=== PATIENT | female | born 1985 | race American Indian/Alaskan Native ===

== ENCOUNTER 2020-04-27 21:37 | Emergency (ER) | payer MEDICAID, OTHER ==
[2020-04-28 01:33] LABS: Bilirubin,Urine NEG (Negative); Blood,Urine NEG (Negative); Color,Urine Straw (Yellow); Mucus,Urine FEW /HPF; Protein,Urine <15 mg/dL mg/dL (Negative); Urobilinogen,Urine < 2.0 mg/dL (<2.0)
[2020-04-28 01:55] LABS: HCG Qualitative,Urine Negative (Negative)
[2020-04-28] MEDS ORDERED: predniSONE 50 MG TAB PO ONE (03:48)
[2020-04-28] MEDS ORDERED: ONDANSETRON 4 MG ODT TAB PO ONE (03:48)
[2020-04-28] MEDS ORDERED: ACETAMINOPHEN 500 MG TAB PO ONE (03:48)
[2020-04-28] MEDS ORDERED: IBUPROFEN 600 MG TAB PO ONE (03:48)
--- NOTE | 2020-04-28 04:06 | Emergency Department Report ---
ED Back Pain/Injury HPI - General Chief Complaint: Abdominal Pain Stated Complaint: RT HIP PAIN Source: patient Limitations: No Limitations - History of Present Illness Initial Comments: Patient is a 35-year-old -[place] female with a history of hypertension, tmv-[id number]-yerhpuzjr diabetes and asthma who presents to the ED with complaint of acute onset persistent nontraumatic low back pain that radiates to the right leg for the last 1 week, worse in the last 2 days. Patient states that she is on her feet most of the time at work and that the pain gets worse after work. Patient states that the pain radiates to the right hip and right groin. Patient denies fall, traumatic injury, numbness and tingling or weakness of lower extremities bilaterally, change in vision, urinary or bowel incontinence, vaginal bleeding, vaginal discharge, abdominal pain, chest pain or shortness of breath, fever and chills. MD Complaint: back pain (lower), other (back pain that radiates to the right hip and leg) -: Sudden, week(s) (1) Similar Symptoms Previously: Yes Place: home Radiation: groin (right), right leg Severity scale (0 -10): 8 Quality: sharp, aching Consistency: constant Improves With: none Worsens With: movement, walking Context: unknown, other (spontaneous) Associated Symptoms: denies other symptoms. denies: confusion, weakness, chest pain, numbness, difficulty walking, cough, difficulty urinating, diaphoresis, incontinence, constipation, headaches, abdominal pain, loss of appetite, malaise, rash, seizure, shortness of breath, syncope, other - Related Data Previous Rx's Medication Instructions Recorded Last Taken Type Dicyclomine [Bentyl] 10 mg PO TID #20 capsule 10/04/18 Unknown Rx Ondansetron [Zofran ODT TAB] 8 mg PO Q8HR #30 tab.rapdis 10/04/18 Unknown Rx Gabapentin 300 mg PO Q12H PRN #24 cap 04/28/20 Unknown Rx Naproxen 500 mg PO Q12H PRN #30 tablet 04/28/20 Unknown Rx methOCARBAMOL [Robaxin TAB] 750 mg PO Q8H PRN #30 tablet 04/28/20 Unknown Rx predniSONE [Deltasone] 40 mg PO QDAY #10 tab 04/28/20 Unknown Rx traMADoL [Ultram 50 MG tab] 50 mg PO Q6HR PRN #12 tablet 04/28/20 Unknown Rx Allergies Allergy/AdvReac Type Severity Reaction Status Date / Time No Known Allergies Allergy Unverified 10/04/18 06:41 ED Review of Systems ROS: Stated complaint: RT HIP PAIN Other details as noted in HPI Constitutional: denies: chills, fever Eyes: denies: eye pain, eye discharge, vision change ENT: denies: ear pain, throat pain Respiratory: denies: cough, shortness of breath, wheezing Cardiovascular: denies: chest pain, palpitations Endocrine: no symptoms reported Gastrointestinal: denies: abdominal pain, nausea, diarrhea Genitourinary: denies: urgency, dysuria, discharge Musculoskeletal: back pain (Low back pain that radiates to the right leg and right hip), arthralgia (Right hip pain that radiates to the right leg). denies: joint swelling Skin: denies: rash, lesions Neurological: denies: headache, weakness, paresthesias Psychiatric: denies: anxiety, depression Hematological/Lymphatic: denies: easy bleeding, easy bruising ED Past Medical Hx - Past Medical History Previous Medical History?: Yes Hx Hypertension: Yes Hx Diabetes: Yes Hx Asthma: Yes - Surgical History Past Surgical History?: Yes Additional Surgical History: C-Sec X 2 - Social History Smoking Status: Never Smoker Substance Use Type: None - Medications Home Medications: Home Medications Medication Instructions Recorded Confirmed Last Taken Type Dicyclomine [Bentyl] 10 mg PO TID #20 capsule 10/04/18 Unknown Rx Ondansetron [Zofran ODT TAB] 8 mg PO Q8HR #30 tab.rapdis 10/04/18 Unknown Rx Gabapentin 300 mg PO Q12H PRN #24 cap 04/28/20 Unknown Rx Naproxen 500 mg PO Q12H PRN #30 tablet 04/28/20 Unknown Rx methOCARBAMOL [Robaxin TAB] 750 mg PO Q8H PRN #30 tablet 04/28/20 Unknown Rx predniSONE [Deltasone] 40 mg PO QDAY #10 tab 04/28/20 Unknown Rx traMADoL [Ultram 50 MG tab] 50 mg PO Q6HR PRN #12 tablet 04/28/20 Unknown Rx ED Physical Exam - General Limitations: No Limitations General appearance: alert, in no apparent distress - Head Head exam: Present: atraumatic, normocephalic, normal inspection - Eye Eye exam: Present: normal appearance, PERRL, EOMI Pupils: Present: normal accommodation - ENT ENT exam: Present: normal exam, normal orophraynx, mucous membranes moist, TM's normal bilaterally, normal external ear exam - Neck Neck exam: Present: normal inspection, full ROM. Absent: tenderness - Respiratory Respiratory exam: Present: normal lung sounds bilaterally. Absent: respiratory distress, wheezes, rales, rhonchi, stridor, chest wall tenderness, accessory muscle use, decreased breath sounds, prolonged expiratory - Cardiovascular Cardiovascular Exam: Present: regular rate, normal rhythm, normal heart sounds. Absent: systolic murmur, diastolic murmur, rubs, gallop - GI/Abdominal GI/Abdominal exam: Present: soft, normal bowel sounds. Absent: distended, tenderness, guarding, rebound, hyperactive bowel sounds - Extremities Exam Extremities exam: Present: normal inspection, full ROM, tenderness (Palpable right hip tenderness), normal capillary refill. Absent: pedal edema, joint swelling, calf tenderness - Back Exam Back exam: Present: normal inspection, full ROM, tenderness (Palpable lumbos acral paraspinal musculoskeletal tenderness), muscle spasm, paraspinal tenderness. Absent: CVA tenderness (R), CVA tenderness (L), vertebral tenderness - Neurological Exam Neurological exam: Present: alert, oriented X3, CN II-XII intact, normal gait, reflexes normal - Psychiatric Psychiatric exam: Present: normal affect, normal mood - Skin Skin exam: Present: warm, dry, intact, normal color. Absent: rash ED Course Vital Signs 04/28/20 01:11 Temperature 97.9 F Pulse Rate 82 Respiratory 18 Rate Blood Pressure 160/110 [Left] O2 Sat by Pulse 99 Oximetry ED Medical Decision Making - Medical Decision Making This is a 35-year-old -[place] female with a history of hypertension, qfl-rvvucxe-mkluoqble diabetes and asthma who presents to the ED with complaint of acute onset persistent nontraumatic low back pain that radiates to the right leg for the last 1 week, worse in the last 2 days. Patient states that she is on her feet most of the time at work and that the pain gets worse after work. Patient states that the pain radiates to the right hip and right groin. In the ED, patient is alert and oriented x3 and is not in distress. Urinalysis is unremarkable. Patient was treated for pain in the ED on reevaluation, patient's pain is well controlled medications. Patient is ambulatory in the ED with no difficulties. Patient was discharged home on pain medications and muscle relaxants and was advised to follow-up with her primary care physician in 5 to 7 days for reevaluation or return to the ED immediately if symptoms get worse. - Differential Diagnosis Back muscle spasm; Muscle strain; sciatica; Bursitis; Osteoarthritis Critical care attestation.: If time is entered above; I have spent that time in minutes in the direct care of this critically ill patient, excluding procedure time. ED Disposition Clinical Impression: Spasm of muscle of lower back Acute low back pain with right-sided sciatica Qualifiers: Back pain laterality: right Qualified Code(s): M54.41 - Lumbago with sciatica, right side Bursitis of right hip Qualifiers: Hip bursitis location: unspecified Qualified Code(s): M70.71 - Other bursitis of hip, right hip Disposition: TO HOME OR SELFCARE Is pt being admited?: No Does the pt Need Aspirin: No Condition: Stable Instructions: Abdominal Pain (ED), Muscle Cramps and Spasms, Tfjv-[id number], Hip Bursitis, Ecbf-ax-Ygth, Sciatica, [id number] Additional Instructions: Take medication with food, drink plenty of fluids and follow-up with your primary care physician in 5 to 7 days for reevaluation. Return to the ED immediately if symptoms get worse. Prescriptions: predniSONE [Deltasone] 40 mg PO QDAY #10 tab Gabapentin 300 mg PO Q12H PRN #24 cap PRN Reason: Neuropathy Naproxen 500 mg PO Q12H PRN #30 tablet PRN Reason: Pain , Severe (7-10) methOCARBAMOL [Robaxin TAB] 750 mg PO Q8H PRN #30 tablet PRN Reason: Muscle Spasm traMADoL [Ultram 50 MG tab] 50 mg PO Q6HR PRN #12 tablet PRN Reason: Pain Referrals: [facility] [Provider Group] - 3-5 Days Forms: Work/School Release Form(ED) Time of Disposition: 04:05 Print Language: CUBAN
[2020-04-28 04:40] VITALS: BP 140/92
== END 2020-04-28 04:00 | disposition home or self-care (01) ==
LOC: ED 21:37
DX: M54.41 Lumbago with sciatica, right side (principal); M70.71 Other bursitis of hip, right hip; M62.830 Muscle spasm of back; I10 Essential (primary) hypertension; E11.9 Type 2 diabetes mellitus without complications; J45.909 Unspecified asthma, uncomplicated; Z98.890 Other specified postprocedural states; Z79.899 Other long term (current) drug therapy; Y93.89 Activity, other specified
CPT/HCPCS: 81001; 81025; 99283; J7512; Q0162

== ENCOUNTER 2020-09-16 00:07 | Emergency (ER) | payer MEDICAID ==
[2020-09-16 03:43] LABS: Alanine Aminotransferase 19 units/L (7-56); Albumin 4.3 g/dL (3.9-5); Blood Urea Nitrogen 9 mg/dL (7-17); Calcium 8.7 mg/dL (8.4-10.2); Hemolysis Index 5
[2020-09-16 03:44] LABS: BUN/Creatinine Ratio 13
[2020-09-16 03:51] LABS: Basophils # (Auto) 0.1 K/mm3 (0.0-0.1); Basophils % (Auto) 1.2 % (0.0-1.8); Eosinophils # (Auto) 0.1 K/mm3 (0.0-0.4); Eosinophils % (Auto) 0.7 % (0.0-4.3); Hematocrit 41.6 % (30.3-42.9); Hemoglobin 13.6 gm/dl (10.1-14.3); Lymphocytes # (Auto) 2.6 K/mm3 (1.2-5.4); Lymphocytes % (Auto) 32.2 % (13.4-35.0); Mean Corpuscular HGB Conc 33 % (30-34); Mean Corpuscular Volume 87 fl (79-97); Monocytes # (Auto) 0.5 K/mm3 (0.0-0.8); Monocytes % (Auto) 6.2 % (0.0-7.3); Platelet Count 245 K/mm3 (140-440); Red Cell Distribution Width 13.6 % (13.2-15.2)
[2020-09-16 03:56] LABS: Bilirubin,Urine NEG (Negative); Blood,Urine NEG (Negative); Color,Urine Straw (Yellow); Mucus,Urine FEW /HPF; Protein,Urine <15 mg/dL mg/dL (Negative); Urobilinogen,Urine < 2.0 mg/dL (<2.0); WBC,Urine < 1.0 /HPF (0.0-6.0)
[2020-09-16] MEDS ORDERED: SODIUM CHLORIDE 0.9% 1000 ML 1,000 ML IV ONE (04:23)
[2020-09-16] MEDS ORDERED: MORPHINE 4 MG/1 ML INJ IV ONE (04:23)
[2020-09-16] MEDS ORDERED: POTASSIUM CHLORIDE ER 20 MEQ TAB PO ONE (04:23)
[2020-09-16] MEDS ORDERED: ONDANSETRON 4 MG/2 ML INJ IV ONE (04:23)
--- NOTE | 2020-09-16 05:01 | Emergency Department Report ---
ED Abdominal Pain HPI - General Chief Complaint: Abdominal Pain Stated Complaint: LOWER ABDOMINAL PAIN Time Seen by Provider: 09/16/20 03:53 Source: patient Mode of arrival: Ambulatory Limitations: No Limitations - History of Present Illness Initial Comments: Patient is a 35-year-old female presents emergency room with complaints of left lower quadrant abdominal pain that began yesterday. She states that it feels like a knot. She states she has intermittent sharp stabbing pain. She denies ever having this in the past. She has associated nausea. She states that she was feeling constipated and used a laxative and was able to have a bowel moveme nt without difficulty. She denies any vomiting, diarrhea, hematochezia, melena, hematemesis, dysuria, urinary symptoms, abnormal vaginal discharge, pelvic pain. Past medical history of asthma, hypertension, diabetes. She states that she did not take her dose of nicardipine 90 mg. She has a past abdominal surgical history of x2. She states that she has a IUD as control. Patient denies any medication allergies. Severity scale (0 -10): 10 - Related Data Previous Rx's Medication Instructions Recorded Last Taken Type Dicyclomine [Bentyl] 10 mg PO TID #20 capsule 10/04/18 Unknown Rx Ondansetron [Zofran ODT TAB] 8 mg PO Q8HR #30 tab.rapdis 10/04/18 Unknown Rx Gabapentin 300 mg PO Q12H PRN #24 cap 04/28/20 Unknown Rx Naproxen 500 mg PO Q12H PRN #30 tablet 04/28/20 Unknown Rx methOCARBAMOL [Robaxin TAB] 750 mg PO Q8H PRN #30 tablet 04/28/20 Unknown Rx predniSONE [Deltasone] 40 mg PO QDAY #10 tab 04/28/20 Unknown Rx traMADoL [Ultram 50 MG tab] 50 mg PO Q6HR PRN #12 tablet 04/28/20 Unknown Rx Ciprofloxacin HCl [Ciprofloxacin 500 mg PO BID 10 Days #40 tablet 09/16/20 Unknown Rx TAB] Promethazine [Phenergan] 25 mg PO Q8HR PRN #12 tab 09/16/20 Unknown Rx metroNIDAZOLE [Flagyl] 500 mg PO BID 10 Days #20 tab 09/16/20 Unknown Rx traMADoL [Ultram 50 MG tab] 50 mg PO Q6HR PRN #12 tablet 09/16/20 Unknown Rx Allergies Allergy/AdvReac Type Severity Reaction Status Date / Time No Known Allergies Allergy Unverified 10/04/18 06:41 ED Review of Systems ROS: Stated complaint: LOWER ABDOMINAL PAIN Other details as noted in HPI Comment: All other systems reviewed and negative ED Past Medical Hx - Past Medical History Previous Medical History?: Yes Hx Hypertension: Yes Hx Diabetes: Yes Hx Asthma: Yes - Surgical History Past Surgical History?: Yes Additional Surgical History: C-Sec X 2 - Social History Smoking Status: Never Smoker Substance Use Type: None - Medications Home Medications: Home Medications Medication Instructions Recorded Confirmed Last Taken Type Dicyclomine [Bentyl] 10 mg PO TID #20 capsule 10/04/18 Unknown Rx Ondansetron [Zofran ODT TAB] 8 mg PO Q8HR #30 tab.rapdis 10/04/18 Unknown Rx Gabapentin 300 mg PO Q12H PRN #24 cap 04/28/20 Unknown Rx Naproxen 500 mg PO Q12H PRN #30 tablet 04/28/20 Unknown Rx methOCARBAMOL [Robaxin TAB] 750 mg PO Q8H PRN #30 tablet 04/28/20 Unknown Rx predniSONE [Deltasone] 40 mg PO QDAY #10 tab 04/28/20 Unknown Rx traMADoL [Ultram 50 MG tab] 50 mg PO Q6HR PRN #12 tablet 04/28/20 Unknown Rx Ciprofloxacin HCl [Ciprofloxacin 500 mg PO BID 10 Days #40 tablet 09/16/20 Unknown Rx TAB] Promethazine [Phenergan] 25 mg PO Q8HR PRN #12 tab 09/16/20 Unknown Rx metroNIDAZOLE [Flagyl] 500 mg PO BID 10 Days #20 tab 09/16/20 Unknown Rx traMADoL [Ultram 50 MG tab] 50 mg PO Q6HR PRN #12 tablet 09/16/20 Unknown Rx ED Physical Exam - General Limitations: No Limitations General appearance: alert, in no apparent distress - Head Head exam: Present: atraumatic, normocephalic - Eye Eye exam: Present: normal appearance - ENT ENT exam: Present: mucous membranes moist - Respiratory Respiratory exam: Present: normal lung sounds bilaterally. Absent: respiratory distress, wheezes, rales, rhonchi, stridor, chest wall tenderness, accessory muscle use, decreased breath sounds, prolonged expiratory - Cardiovascular Cardiovascular Exam: Present: regular rate, normal rhythm, normal heart sounds. Absent: systolic murmur, diastolic murmur, rubs, gallop - GI/Abdominal GI/Abdominal exam: Present: soft, tenderness (LLQ abd ttp), guarding (voluntary), normal bowel sounds. Absent: distended, rebound, rigid - Back Exam Back exam: Absent: CVA tenderness (R), CVA tenderness (L) - Neurological Exam Neurological exam: Present: alert, oriented X3 - Psychiatric Psychiatric exam: Present: normal affect, normal mood - Skin Skin exam: Present: warm, dry, intact ED Course Vital Signs 09/16/20 09/16/20 09/16/20 02:38 04:54 05:24 Temperature 98.2 F Pulse Rate 87 Respiratory 20 16 16 Rate Blood Pressure 177/107 O2 Sat by Pulse 100 Oximetry ED Medical Decision Making - Lab Data Result diagrams: 09/16/20 02:56 09/16/20 02:56 Lab Results 09/16/20 09/16/20 09/16/20 Range/Units 02:56 02:56 02:56 WBC 8.1 (4.5-11.0) K/mm3 RBC 4.80 (3.65-5.03) M/mm3 Hgb 13.6 (10.1-14.3) gm/dl Hct 41.6 (30.3-42.9) % MCV 87 (79-97) fl MCH 28 (28-32) pg MCHC 33 (30-34) % RDW 13.6 (13.2-15.2) % Plt Count 245 (140-440) K/mm3 Lymph % (Auto) 32.2 (13.4-35.0) % [place] % (Auto) 6.2 (0.0-7.3) % Eos % (Auto) 0.7 (0.0-4.3) % Baso % (Auto) 1.2 (0.0-1.8) % Lymph # (Auto) 2.6 (1.2-5.4) K/mm3 [place] # (Auto) 0.5 (0.0-0.8) K/mm3 Eos # (Auto) 0.1 (0.0-0.4) K/mm3 Baso # (Auto) 0.1 (0.0-0.1) K/mm3 Seg Neutrophils % 59.7 (40.0-70.0) % Seg Neutrophils # 4.8 (1.8-7.7) K/mm3 Sodium 138 (137-145) mmol/L Potassium 3.2 L (3.6-5.0) mmol/L Chloride 102.4 (98-107) mmol/L Carbon Dioxide 26 (22-30) mmol/L Anion Gap 13 mmol/L BUN 9 (7-17) mg/dL Creatinine 0.7 (0.6-1.2) mg/dL Estimated GFR > 60 ml/min BUN/Creatinine Ratio 13 % Glucose 136 H (65-100) mg/dL Calcium 8.7 (8.4-10.2) mg/dL Total Bilirubin 0.40 (0.1-1.2) mg/dL AST 15 (5-40) units/L ALT 19 (7-56) units/L Alkaline Phosphatase 77 (35-129) units/L Total Protein 7.0 (6.3-8.2) g/dL Albumin 4.3 (3.9-5) g/dL Albumin/Globulin Ratio 1.6 % Lipase (13-60) units/L HCG, Qual Negative (Negative) Urine Color (Yellow) Urine Turbidity (Clear) Urine pH (5.0-7.0) Ur Specific [place] (1.003-1.030) Urine Protein (Negative) mg/dL Urine Glucose (UA) (Negative) mg/dL Urine Ketones (Negative) mg/dL Urine Blood (Negative) Urine Nitrite (Negative) Urine Bilirubin (Negative) Urine Urobilinogen (<2.0) mg/dL Ur Leukocyte Esterase (Negative) Urine WBC (Auto) (0.0-6.0) /HPF Urine RBC (Auto) (0.0-6.0) /HPF U Epithel Cells (Auto) (0-13.0) /HPF Urine Mucus /HPF 09/16/20 09/16/20 Range/Units 03:04 04:00 WBC (4.5-11.0) K/mm3 RBC (3.65-5.03) M/mm3 Hgb (10.1-14.3) gm/dl Hct (30.3-42.9) % MCV (79-97) fl MCH (28-32) pg MCHC (30-34) % RDW (13.2-15.2) % Plt Count (140-440) K/mm3 Lymph % (Auto) (13.4-35.0) % [place] % (Auto) (0.0-7.3) % Eos % (Auto) (0.0-4.3) % Baso % (Auto) (0.0-1.8) % Lymph # (Auto) (1.2-5.4) K/mm3 [place] # (Auto) (0.0-0.8) K/mm3 Eos # (Auto) (0.0-0.4) K/mm3 Baso # (Auto) (0.0-0.1) K/mm3 Seg Neutrophils % (40.0-70.0) % Seg Neutrophils # (1.8-7.7) K/mm3 Sodium (137-145) mmol/L Potassium (3.6-5.0) mmol/L Chloride (98-107) mmol/L Carbon Dioxide (22-30) mmol/L Anion Gap mmol/L BUN (7-17) mg/dL Creatinine (0.6-1.2) mg/dL Estimated GFR ml/min BUN/Creatinine Ratio % Glucose (65-100) mg/dL Calcium (8.4-10.2) mg/dL Total Bilirubin (0.1-1.2) mg/dL AST (5-40) units/L ALT (7-56) units/L Alkaline Phosphatase (35-129) units/L Total Protein (6.3-8.2) g/dL Albumin (3.9-5) g/dL Albumin/Globulin Ratio % Lipase 19 (13-60) units/L HCG, Qual (Negative) Urine Color Straw (Yellow) Urine Turbidity Clear (Clear) Urine pH 6.0 (5.0-7.0) Ur Specific [place] 1.020 (1.003-1.030) Urine Protein <15 mg/dl (Negative) mg/dL Urine Glucose (UA) >=500 (Negative) mg/dL Urine Ketones Neg (Negative) mg/dL Urine Blood Neg (Negative) Urine Nitrite Neg (Negative) Urine Bilirubin Neg (Negative) Urine Urobilinogen < 2.0 (<2.0) mg/dL Ur Leukocyte Esterase Neg (Negative) Urine WBC (Auto) < 1.0 (0.0-6.0) /HPF Urine RBC (Auto) 2.0 (0.0-6.0) /HPF U Epithel Cells (Auto) 1.0 (0-13.0) /HPF Urine Mucus Few /HPF - Radiology Data Radiology results: report reviewed Ordering Physician: EVANGELITS CISNEROS Date of Service: 09/16/20 Procedure(s): CT abdomen pelvis w con Accession Number(s): [id number] cc: EVANGELIST CISNEROS CT ABDOMEN AND PELVIS WITH CONTRAST INDICATION / CLINICAL INFORMATION: LLQ abd pain, nausea. TECHNIQUE: Axial CT images were obtained through the abdomen and pelvis after 100 mL Omnipaque [address] scans at this location are performed using CT dose reduction for ALARA by means of automated exposure control. COMPARISON: None available. FINDINGS: LOWER CHEST: No significant abnormality. LIVER: Hepatic steatosis. BILIARY SYSTEM: No significant abnormality. PANCREAS: No significant abnormality. SPLEEN: No significant abnormality. ADRENALS: No significant abnormality. KIDNEYS and URETERS: No significant abnormality. STOMACH / BOWEL: Sigmoid colonic diverticulosis with associated pericolonic stranding, compatible with acute diverticulitis. No extraluminal air or fluid collection identified. PERITONEUM: No free fluid. No free air. No fluid collection. LYMPH NODES: No significant adenopathy. VASCULAR STRUCTURES: No significant abnormality. URINARY BLADDER: No significant abnormality. REPRODUCTIVE ORGANS: No significant abnormality. IUD in place. ADDITIONAL FINDINGS: None. SKELETAL SYSTEM: No significant abnormality. IMPRESSION: 1. Sigmoid colonic diverticulitis. No extraluminal air or fluid collection. 2. Hepatic steatosis. Signer Name: Nicky Wheeler MD Signed: 09/16/2020 6:02 AM Workstation Name: [id number] Transcribed By: [facility] Dictated By: Nicky Wheeler MD Electronically Authenticated By: Nicky Wheeler MD Signed Date/Time: 09/16/20601 DD/ TD/TT: - Medical Decision Making Patient is a 35-year-old female presents emergency room with complaints of left lower quadrant abdominal pain that began yesterday. She states that it feels like a knot. She states she has intermittent sharp stabbing pain. She denies ever having this in the past. She has associated nausea. She states that she was feeling constipated and used a laxative and was able to have a bowel movement without difficulty. She denies any vomiting, diarrhea, hematochezia, melena, hematemesis, dysuria, urinary symptoms, abnormal vaginal discharge, pelvic pain. Past medical history of asthma, hypertension, diabetes. She states that she did not take her dose of nicardipine 90 mg. She has a past abdominal surgical history of x2. She states that she has a IUD as control. Patient denies any medication allergies. Vitals with elevated blood pressure, otherwise stable, patient states that she did not take her medication yesterday, patient given her home medication, she does not have any symptoms related to her blood pressure, she states that she does have her blood pressure medication at home. On exam patient has left lower quadrant tenderness palpation with voluntary guarding, no rebound tenderness, no rigidity, normal bowel sounds, no peritoneal signs. Labs with mild hypokalemia, repleted with K- Dur, otherwise stable. CT abdomen pelvis with IV contrast: 1. Sigmoid colonic diverticulitis. No extraluminal air or fluid collection. 2. Hepatic steatosis. Patient has no peritoneal signs, no abscess or perforation on CT, she has no leukocytosis, no fever, no tachycardia, patient is appropriate for outpatient trial of antibiotics for diverticulitis. Discussed case with Dr. Smart, ER attending who is in agreement with plan. Patient given IV Levaquin and Flagyl while in the emergency department. Patient given pain medications and symptoms improved and she was feeling much better and ready to go home. She was able to tolerate p.o. intake without difficulty. Patient given prescription for Cipro, Flagyl, Phenergan, tramadol. Discussed the importance of follow-up with patient. Discussed very strict return precautions. Advised patient Please take medication as prescribed. Do not drive or operate machinery while taking pain medication. Increase your water intake. Eat a bland liquid diet and slowly advance her diet as tolerated. Please follow the diet for diverticulitis. Follow-up with your primary care doctor for reexamination. Follow-up with a GI doctor. Return to emergency room immediately for any new or worsening symptoms including but not limited to worsening abdominal pain, constant vomiting, unable to tolerate by mouth intake, fever, blood or pus in the stool, etc. Critical care attestation.: If time is entered above; I have spent that time in minutes in the direct care of this critically ill patient, excluding procedure time. ED Disposition Clinical Impression: Acute diverticulitis Abdominal pain Qualifiers: Abdominal location: left lower quadrant Qualified Code(s): R10.32 - Left lower quadrant pain Disposition: - TO HOME OR SELFCARE Is pt being admited?: No Does the pt Need Aspirin: No Condition: Stable Instructions: Diverticulitis, Abdominal Pain (ED) Additional Instructions: Please take medication as prescribed. Do not drive or operate machinery while taking pain medication. Increase your water intake. Eat a bland liquid diet and slowly advance her diet as tolerated. Please follow the diet for diverticulitis. Follow-up with your primary care doctor for reexamination. Follow-up with a GI doctor. Return to emergency room immediately for any new or worsening symptoms including but not limited to worsening abdominal pain, constant vomiting, unable to tolerate by mouth intake, fever, blood or pus in the stool, etc. Prescriptions: Ciprofloxacin HCl [Ciprofloxacin TAB] 500 mg PO BID 10 Days #40 tablet metroNIDAZOLE [Flagyl] 500 mg PO BID 10 Days #20 tab Promethazine [Phenergan] 25 mg PO Q8HR PRN #12 tab PRN Reason: Nausea traMADoL [Ultram 50 MG tab] 50 mg PO Q6HR PRN #12 tablet PRN Reason: Pain , Severe (7-10) Referrals: [facility] [Provider Group] - 2-3 Days PRIMARY CARE, [Primary Care Provider] - 2-3 Days Time of Disposition: 06:37 Print Language: SWEDISH
[2020-09-16] MEDS ORDERED: NIFEdipine XL 90 MG TAB PO ONE (05:23)
--- NOTE | 2020-09-16 06:06 | Cat Scan Report ---
CT ABDOMEN AND PELVIS WITH CONTRAST INDICATION / CLINICAL INFORMATION: LLQ abd pain, nausea. TECHNIQUE: Axial CT images were obtained through the abdomen and pelvis after 100 mL Omnipaque [address] scans at this location are performed using CT dose reduction for ALARA by means of automated exposure control. COMPARISON: None available. FINDINGS: LOWER CHEST: No significant abnormality. LIVER: Hepatic steatosis. BILIARY SYSTEM: No significant abnormality. PANCREAS: No significant abnormality. SPLEEN: No significant abnormality. ADRENALS: No significant abnormality. KIDNEYS and URETERS: No significant abnormality. STOMACH / BOWEL: Sigmoid colonic diverticulosis with associated pericolonic stranding, compatible wit h acute diverticulitis. No extraluminal air or fluid collection identified. PERITONEUM: No free fluid. No free air. No fluid collection. LYMPH NODES: No significant adenopathy. VASCULAR STRUCTURES: No significant abnormality. URINARY BLADDER: No significant abnormality. REPRODUCTIVE ORGANS: No significant abnormality. IUD in place. ADDITIONAL FINDINGS: None. SKELETAL SYSTEM: No significant abnormality. IMPRESSION: 1. Sigmoid colonic diverticulitis. No extraluminal air or fluid collection. 2. Hepatic steatosis. Signer Name: Nicky Wheeler MD Signed: 09/16/2020 6:02 AM Workstation Name: [id number]
[2020-09-16] MEDS ORDERED: metroNIDAZOLE/NS 500 MG/100 ML 500 MG/100 ML BAG IV ONE (06:30)
[2020-09-16 08:32] VITALS: BP 130/81
== END 2020-09-16 09:59 | disposition home or self-care (01) ==
LOC: ED 00:07
DX: K57.92 Diverticulitis of intestine, part unspecified, without perforation or abscess without bleeding (principal); R10.32 Left lower quadrant pain; I10 Essential (primary) hypertension; E11.9 Type 2 diabetes mellitus without complications; J45.909 Unspecified asthma, uncomplicated; Z98.890 Other specified postprocedural states; Z79.899 Other long term (current) drug therapy
CPT/HCPCS: 36415; 74177; 80053; 81001; 83690; 84703; 85025; 96361; 96365; 96367; 96375; 99284; J1956; J2270; J2405; J7030; Q9967; 96372

== ENCOUNTER 2021-09-20 17:11 | Emergency (ER) | payer MEDICAID ==
[2021-09-20] MEDS ORDERED: MORPHINE 4 MG/1 ML INJ IM ONE (17:40)
[2021-09-20] MEDS ORDERED: amLODIPine 5 MG TAB PO ONE (17:40)
--- NOTE | 2021-09-20 17:41 | Emergency Department Report ---
ED General Adult HPI - General Chief complaint: High BP Stated complaint: 3 WKS /HIGH BLOOD PRESSURE Time Seen by Provider: 09/20/21 17:30 Source: patient, RN notes reviewed, old records reviewed Mode of arrival: Ambulatory Limitations: No Limitations - History of Present Illness Initial comments: This is a 36-year-old female. She is reportedly 4, para 2. Past medical history includes uncomplicated sigmoid presumed diverticulitis, chronic hypertension, for which she takes nifedipine, and history of x2. She presents to the ER today with a complaint of suprapubic and left lower quadrant abdominal pain. She reports no dysuria, and reports an outpatient urine sample was collected by a medical professional, demonstrated bacteriuria, and she was started on Keflex antibiotics. Today is day 3 of antibiotics. She denies headache, neck pain, chest pain, right lower quadrant pain. Denies vomiting and diarrhea. She reports that she had menstruation at the beginning of last month, and is not currently bleeding at this time. She does report a positive outpatient test, and presents to the ER for same. She also presents for suprapubic and left lower quadrant abdominal pain. -: Gradual, hour(s), days(s) Location: abdomen Radiation: non-radiation Severity scale (0 -10): 9 Quality: aching Consistency: constant Improves with: rest Worsens with: movement - Related Data Previous Rx's Medication Instructions Recorded Last Taken Type predniSONE [Deltasone] 40 mg PO QDAY #10 tab 04/28/20 Unknown Rx Promethazine [Phenergan] 25 mg PO Q8HR PRN #12 tab 09/16/20 Unknown Rx metroNIDAZOLE [Flagyl] 500 mg PO BID 10 Days #20 tab 09/16/20 Unknown Rx Acetaminophen [Non-Aspirin Extra 500 mg PO Q6HR PRN #30 tablet 09/20/21 Unknown Rx Strength] Doxylamine Succinate/Vit B6 1 each PO QHS PRN #30 tablet. 09/20/21 Unknown Rx [Yasmin Reyes 10-10 mg Tablet] Ching Root [Ching] 250 mg PO QID PRN #30 capsule 09/20/21 Unknown Rx Vit-Fe Fumar-FA [ 1 tab PO QDAY #30 tablet 09/20/21 Unknown Rx Vitamin] Allergies Allergy/AdvReac Type Severity Reaction Status Date / Time No Known Allergies Allergy Unverified 10/04/18 06:41 ED Review of Systems ROS: Stated complaint: 3 WKS /HIGH BLOOD PRESSURE Other details as noted in HPI Constitutional: denies: fever Eyes: denies: eye discharge ENT: denies: epistaxis Respiratory: denies: cough Cardiovascular: denies: chest pain Gastrointestinal: abdominal pain. denies: vomiting, diarrhea Genitourinary: denies: dysuria Musculoskeletal: denies: back pain Neurological: denies: weakness Hematological/Lymphatic: denies: easy bleeding ED Past Medical Hx - Past Medical History Hx Hypertension: Yes Hx Diabetes: Yes Hx Asthma: Yes - Surgical History Additional Surgical History: C-Sec X 2 - Social History Smoking Status: Never Smoker Substance Use Type: None - Medications Home Medications: Home Medications Medication Instructions Recorded Confirmed Last Taken Type predniSONE [Deltasone] 40 mg PO QDAY #10 tab 04/28/20 Unknown Rx Promethazine [Phenergan] 25 mg PO Q8HR PRN #12 tab 09/16/20 Unknown Rx metroNIDAZOLE [Flagyl] 500 mg PO BID 10 Days #20 tab 09/16/20 Unknown Rx Acetaminophen [Non-Aspirin Extra 500 mg PO Q6HR PRN #30 tablet 09/20/21 Unknown Rx Strength] Doxylamine Succinate/Vit B6 1 each PO QHS PRN #30 tablet. 09/20/21 Unknown Rx [Yasmin Reyes 10-10 mg Tablet] Ching Root [Ching] 250 mg PO QID PRN #30 capsule 09/20/21 Unknown Rx Vit-Fe Fumar-FA [ 1 tab PO QDAY #30 tablet 09/20/21 Unknown Rx Vitamin] ED Physical Exam - General Limitations: No Limitations General appearance: alert, in no apparent distress - Head Head exam: Present: atraumatic, normocephalic - Eye Eye exam: Present: normal appearance, EOMI. Absent: nystagmus - ENT ENT exam: Present: normal exam, normal orophraynx, mucous membranes moist, normal external ear exam - Neck Neck exam: Present: normal inspection, full ROM. Absent: tenderness, meningismus - Respiratory Respiratory exam: Present: normal lung sounds bilaterally. Absent: respiratory distress, wheezes, rales, rhonchi, stridor, decreased breath sounds - Cardiovascular Cardiovascular Exam: Present: regular rate, normal rhythm, normal heart sounds. Absent: bradycardia, tachycardia, irregular rhythm, systolic murmur, diastolic murmur, rubs, gallop - GI/Abdominal GI/Abdominal exam: Present: soft, tenderness, other (There is suprapubic and left lower quadrant tenderness to deep palpation. There is no rebound, guarding or peritoneal signs. There is a negative Hines sign. There is a negative Rovsing sign). Absent: distended, guarding, rebound, rigid, pulsatile mass - Extremities Exam Extremities exam: Present: normal inspection, full ROM, other (2+ pulses noted in the bilateral upper and lower extremities. There is no palpable cord. negative Homans sign. Muscular compartments are soft. The pelvis is stable.). Absent: pedal edema, calf tenderness - Back Exam Back exam: Present: normal inspection. Absent: tenderness, CVA tenderness (R), CVA tenderness (L), paraspinal tenderness, vertebral tenderness - Neurological Exam Neurological exam: Present: alert, oriented X3, other (No facial droop. Tongue midline. Extraocular movements intact bilaterally. Facial sensation intact to light touch in V1, V2, V3 distribution bilaterally. 5 and a 5 strength in 4 extremities. Sensation intact to light touch in 4 extremities.). Absent: motor sensory deficit - Psychiatric Psychiatric exam: Present: normal affect, normal mood - Skin Skin exam: Present: warm, dry, intact, normal color. Absent: rash ED Course Vital Signs 09/20/21 09/20/21 09/20/21 17:16 17:52 19:57 Temperature 98.8 F Pulse Rate 87 77 88 Respiratory 18 16 16 Rate Blood Pressure 184/114 Blood Pressure 200/110 143/92 [Right] O2 Sat by Pulse 97 98 Oximetry - Reevaluation(s) Reevaluation #1: 09/20/21 18:30 Differential diagnosis, including but not limited to: Known UTI, ovarian cyst, , constipation, chronic hypertension, intrauterine , ectopic Assessment and plan: 36-year-old female, reportedly , presenting with suprapubic and left lower quadrant abdominal pain. Hypertension is chronic. Denies urinary symptoms to myself. Currently on Keflex antibiotics. Reports compliance with antibiotics. Continue antihypertensive medications. Obtain appropriate laboratory studies, and pelvic ultrasound. Have requested urinalysis if possible, but, patient already on Keflex antibiotics. Treat with pain medication, and reassess. Discussed this plan of care with the patient. She articulated understanding. She is agreeable to the plan of care 09/20/21 19:39 Patient is feeling much improved. She is asking for ice water which I have personally provided to her. I updated patient on significance of her laboratory studies, including quant hCG of 167. Blood pressure is improved, and all questions are answered. Pelvic ultrasound is pending at this time Reevaluation #2: 09/20/21 20:27 09/20/21 21:09 Ultrasound confirms intrauterine and fibroid. Patient ready for discharge. All questions answered. Return precautions are reviewed ED Medical Decision Making - Lab Data Result diagrams: 09/20/21 17:52 09/20/21 17:52 Vital Signs 09/20/21 09/20/21 17:16 17:52 Temperature 98.8 F Pulse Rate 87 77 Respiratory 18 16 Rate Blood Pressure 184/114 Blood Pressure 200/110 [Right] O2 Sat by Pulse 97 Oximetry Lab Results 09/20/21 09/20/21 09/20/21 Range/Units 17:52 17:52 17:52 WBC 5.8 (4.5-11.0) K/mm3 RBC 5.24 H (3.65-5.03) M/mm3 Hgb 14.9 H (10.1-14.3) gm/dl Hct 45.3 H (30.3-42.9) % MCV 87 (79-97) fl MCH 28 (28-32) pg MCHC 33 (30-34) % RDW 13.6 (13.2-15.2) % Plt Count 266 (140-440) K/mm3 Sodium 136 L (137-145) mmol/L Potassium 3.2 L (3.6-5.0) mmol/L Chloride 97.1 L (98-107) mmol/L Carbon Dioxide 25 (22-30) mmol/L Anion Gap 17 mmol/L BUN 13 (7-17) mg/dL Creatinine 0.8 (0.6-1.2) mg/dL Estimated GFR > 60 ml/min BUN/Creatinine Ratio 16 % Glucose 246 H (65-100) mg/dL Calcium 9.9 (8.4-10.2) mg/dL Total Bilirubin 0.30 (0.1-1.2) mg/dL AST 30 (5-40) units/L ALT 48 (7-56) units/L Alkaline Phosphatase 101 (35-129) units/L Total Protein 6.8 (6.3-8.2) g/dL Albumin 4.4 (3.9-5) g/dL Albumin/Globulin Ratio 1.8 % HCG, Quant 167.6 H (0-4) mIU/mL Urine Color (Yellow) Urine Turbidity (Clear) Urine pH (5.0-7.0) Ur Specific [place] (1.003-1.030) Urine Protein (Negative) mg/dL Urine Glucose (UA) (Negative) mg/dL Urine Ketones (Negative) mg/dL Urine Blood (Negative) Urine Nitrite (Negative) Urine Bilirubin (Negative) Urine Urobilinogen (<2.0) mg/dL Ur Leukocyte Esterase (Negative) Urine WBC (Auto) (0.0-6.0) /HPF Urine RBC (Auto) (0.0-6.0) /HPF U Epithel Cells (Auto) (0-13.0) /HPF 09/20/21 Range/Units 17:54 WBC (4.5-11.0) K/mm3 RBC (3.65-5.03) M/mm3 Hgb (10.1-14.3) gm/dl Hct (30.3-42.9) % MCV (79-97) fl MCH (28-32) pg MCHC (30-34) % RDW (13.2-15.2) % Plt Count (140-440) K/mm3 Sodium (137-145) mmol/L Potassium (3.6-5.0) mmol/L Chloride (98-107) mmol/L Carbon Dioxide (22-30) mmol/L Anion Gap mmol/L BUN (7-17) mg/dL Creatinine (0.6-1.2) mg/dL Estimated GFR ml/min BUN/Creatinine Ratio % Glucose (65-100) mg/dL Calcium (8.4-10.2) mg/dL Total Bilirubin (0.1-1.2) mg/dL AST (5-40) units/L ALT (7-56) units/L Alkaline Phosphatase (35-129) units/L Total Protein (6.3-8.2) g/dL Albumin (3.9-5) g/dL Albumin/Globulin Ratio % HCG, Quant (0-4) mIU/mL Urine Color Colorless (Yellow) Urine Turbidity Clear (Clear) Urine pH 7.0 (5.0-7.0) Ur Specific [place] 1.008 (1.003-1.030) Urine Protein <15 mg/dl (Negative) mg/dL Urine Glucose (UA) >=500 (Negative) mg/dL Urine Ketones Neg (Negative) mg/dL Urine Blood Neg (Negative) Urine Nitrite Neg (Negative) Urine Bilirubin Neg (Negative) Urine Urobilinogen < 2.0 (<2.0) mg/dL Ur Leukocyte Esterase Neg (Negative) Urine WBC (Auto) < 1.0 (0.0-6.0) /HPF Urine RBC (Auto) 1.0 (0.0-6.0) /HPF U Epithel Cells (Auto) < 1.0 (0-13.0) /HPF - Radiology Data Radiology results: report reviewed, image reviewed Transvaginal ultrasound INDICATION: Lower abdominal pain FINDINGS: Uterus measures 9.8 x 7.9 x 8.0 cm. Heterogeneous mass in the uterus measures 4.5 x 3.0 cm could represent large fibroid. Left ovary is not seen. Right ovary measures 3.1 x 2.7 x 2.8 cm with small cyst. Normal flow in the right adnexa. Gestational sac measures 0.8 mm measuring 5 weeks 4 days. Single intrauterine IMPRESSION: 1. Gestational sac measures 0.8 mm measuring 5 weeks 4 days. Findings suggest early 2. Heterogeneous mass in the uterus could represent a large fibroid. Signer Name: Ronal Paul MD Signed: 09/20/2021 8:01 PM Workstation Name: [id number] Critical care attestation.: If time is entered above; I have spent that time in minutes in the direct care of this critically ill patient, excluding procedure time. ED Disposition Clinical Impression: Hypertension, Hypokalemia, Left lower quadrant abdominal pain during , Fibroid, uterine Disposition: 01 HOME / SELF CARE / HOMELESS Is pt being admited?: No Does the pt Need Aspirin: No Condition: Good Instructions: Hypertension (ED) Additional Instructions: Please advance diet as tolerated. Please consume foods that are high in potassium and magnesium, such as banana, avocado, or potato. Please take the pain medication, nausea medication as needed and directed, as well as the vitamins. Please make certain to continue current outpatient blood pressure medications, and continue current Keflex antibiotics. Patient may follow-up in this emergency room, or with an outpatient HAND II CUTTER doctor. Advance diet as tolerated, and drink plenty of fluids. Recommend patient follow-up with an outpatient computer scientist as soon as possible to initiate outpatient care Please return to the emergency room right away with new pain, worsened pain, migration of pain, projectile vomiting, change in mental status, confusion, inability tolerate liquid feeds, new, worsened or different symptoms not present on the initial emergency room evaluation Prescriptions: Doxylamine Succinate/Vit B6 [Yasmin Reyes 10-10 mg Tablet] 1 each PO QHS PRN #30 tablet. PRN Reason: Nausea Ching Root [Ching] 250 mg PO QID PRN #30 capsule PRN Reason: Nausea Acetaminophen [Non-Aspirin Extra Strength] 500 mg PO Q6HR PRN #30 tablet PRN Reason: Pain , Severe (7-10) Vit-Fe Fumar-FA [ Vitamin] 1 tab PO QDAY #30 tablet Referrals: PRIMARY CARE, [Primary Care Provider] - 3-5 Days
[2021-09-20 18:27] LABS: Hematocrit 45.3 % (30.3-42.9); Hemoglobin 14.9 gm/dl (10.1-14.3); Mean Corpuscular HGB Conc 33 % (30-34); Mean Corpuscular Volume 87 fl (79-97); Platelet Count 266 K/mm3 (140-440); Red Blood Count 5.24 M/mm3 (3.65-5.03); Red Cell Distribution Width 13.6 % (13.2-15.2)
[2021-09-20 18:46] LABS: Bilirubin,Urine NEG (Negative); Blood,Urine NEG (Negative); Color,Urine Colorless (Yellow); Protein,Urine <15 mg/dL mg/dL (Negative); Urobilinogen,Urine < 2.0 mg/dL (<2.0); WBC,Urine < 1.0 /HPF (0.0-6.0)
[2021-09-20 19:22] LABS: Alanine Aminotransferase 48 units/L (7-56); Albumin 4.4 g/dL (3.9-5); BUN/Creatinine Ratio 16; Blood Urea Nitrogen 13 mg/dL (7-17); Calcium 9.9 mg/dL (8.4-10.2); Hemolysis Index 10
[2021-09-20] MEDS ORDERED: POTASSIUM CHLORIDE ER 20 MEQ TAB PO ONE (19:35)
[2021-09-20 19:58] VITALS: BP 143/92
--- NOTE | 2021-09-20 21:05 | Ultrasound Report ---
Transvaginal ultrasound INDICATION: Lower abdominal pain FINDINGS: Uterus measures 9.8 x 7.9 x 8.0 cm. Heterogeneous mass in the uterus measures 4.5 x 3.0 cm could represent large fibroid. Left ovary is not seen. Right ovary measures 3.1 x 2.7 x 2.8 cm with s mall cyst. Normal flow in the right adnexa. Gestational sac measures 0.8 mm measuring 5 weeks 4 days. Single intrauterine IMPRESSION: 1. Gestational sac measures 0.8 mm measuring 5 weeks 4 days. Findings suggest early 2. Heterogeneous mass in the uterus could represent a large fibroid. Signer Name: Ronal Paul MD Signed: 09/20/2021 9:01 PM Workstation Name: [id number]
== END 2021-09-20 21:37 | disposition home or self-care (01) ==
LOC: ED 17:11
DX: O26.891 Other specified pregnancy related conditions, first trimester (principal); D25.9 Leiomyoma of uterus, unspecified; I10 Essential (primary) hypertension; E87.6 Hypokalemia; Z98.890 Other specified postprocedural states; Z3A.01 Less than 8 weeks gestation of pregnancy
CPT/HCPCS: 36415; 76817; 80053; 81001; 84702; 85027; 86850; 86900; 86901; 87086; 96372; 99284; J2270

== ENCOUNTER 2021-10-29 10:19 | Day surgery (SDC) | payer MEDICAID ==
--- NOTE | 2021-10-29 08:18 | History and Physical Report ---
History of Present Illness Date of examination: 10/24/21 Chief complaint: Pelvic pain, spotting History of present illness: Pt is a 36 year old -[place]ong[place] female LMP 08/19/21 at 10w1d by LMP who presents for surgical management of pelvic pain, vaginal spotting, and findings of gestational sac with yolk sac but without pole on two pelvic ultrasounds two weeks apart. 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 surgery (hysteroscopic IUD removal ), section (x 2 ) PR[employer] CLIPPINGS CUTTER AND PASTER History: fibroids Family/Genetic History: diabetes, hypertension Social history: no significant social history - Obstetrical History : 4 Para: 2 Hx # Term Pregnancies: 0 Number of Pregnancies: 2 Spontaneous Abortions: 1 Induced : 0 Number of Living Children: 2 Medications and Allergies Allergies Allergy/AdvReac Type Severity Reaction Status Date / Time No Known Allergies Allergy Unverified 10/04/18 06:41 Home Medications Medication Instructions Recorded Confirmed Last Taken Type Escitalopram Oxalate [Lexapro] DAILY 10/28/21 10/28/21 History Insulin Glargine,Hum.rec.anlog AC 10/28/21 10/28/21 History [Toujeo Solostar] Lispro Insulin [HumaLOG] 25 units SQ DAILY 10/28/21 10/28/21 10/28/21 History Metformin HCl [Metformin HCl ER] DAILY 10/28/21 10/28/21 History NIFEdipine [Nifedipine ER] DAILY 10/28/21 10/28/21 History Active Meds: Active Medications Lactated Ringer's (Lactated Ringers) 1,000 mls @ 75 mls/hr IV DIRECT JANETTE Cefazolin Sodium (Ancef/Sterile Water 2 Gm/20 Ml) 2 gm in 20 mls @ 80 mls/hr IV PREOP NR; Protocol Review of Systems All systems: negative - Physical Exam Breasts: Positive: deferred Abdomen: Positive: soft (obese ) Extremities: Positive: normal Results All other labs normal. Assessment and Plan A: Blighted Ovum Fibroid Uterus Insulin Dependent Diabetes Hypertension Personal History of Pulmonary Embolism Obesity Asthma Anxiety P: Proceed with suction dilation and curettage and other indicated procedures Resume anticoagulation postoperatively
[~2021-10-29 10:19] MED LIST: LACTATED RINGERS 1,000 ML IV SCH; ceFAZolin/Water 2 GM/20 ML 2 GM/20 ML SYRINGE IV NR
[2021-10-29] MEDS ORDERED: ONDANSETRON 4 MG/2 ML INJ IV PRN (11:33)
[2021-10-29] MEDS ORDERED: HYDROmorphone 0.5 MG/0.5 ML INJ IV PRN ×2 (11:33)
[2021-10-29] MEDS ORDERED: INSULIN LISPRO 100 UNIT/ML SUB-Q ONE (11:34)
--- NOTE | 2021-10-29 11:34 | Anesthesia Day of Surgery ---
Anesthesia Day of Surgery - Day of Surgery Patient Examined: Yes Patient H&P Reviewed: Yes Patient is NPO: Yes
--- NOTE | 2021-10-29 11:35 | Anesthesia Consultation ---
Anesthesia Consult and Med Hx Date of service: 10/29/21 - Airway Anesthetic Teeth Evaluation: Good (Veneer/Bonding on front) ROM Head & Neck: Adequate Mental/Hyoid Distance: Adequate Mallampati Class: Class II Intubation Access Assessment: Good - Pre-Operative Health Status ASA Pre-Surgery Classification: ASA3 Proposed Anesthetic Plan: General - Pulmonary Hx Smoking: Yes (HOOKAH, QUIT 1 MONTH AGO) Hx Asthma: Yes Hx Respiratory Symptoms: Yes (Had PE; off Xarelto x 1 month) Hx Sleep Apnea: No - Cardiovascular System Hx Hypertension: Yes - Central Nervous System Hx Psychiatric Problems: Yes (Anxiety) - Gastrointestinal Hx Gastroesophageal Reflux Disease: No - Endocrine Hx Insulin Dependent Diabetes: Yes Hx Non-Insulin Dependent Diabetes: Yes - Hematic Hx Sickle Cell Disease: No - Other Systems Hx Obesity: Yes
[2021-10-29] MEDS ORDERED: propofoL 200 MG/20 ML VIAL IV ONE ×2 (11:52→12:44)
[2021-10-29] MEDS ORDERED: MIDAZOLAM 2 MG/2 ML INJ IV NR (12:00)
[2021-10-29 12:02] LABS: Hematocrit 40.2 % (30.3-42.9); Hemoglobin 13.1 gm/dl (10.1-14.3); Mean Corpuscular HGB Conc 33 % (30-34); Mean Corpuscular Volume 88 fl (79-97); Platelet Count 235 K/mm3 (140-440); Red Cell Distribution Width 13.8 % (13.2-15.2)
[2021-10-29] MEDS ORDERED: SILVER NITRATE APPLICATOR 1 EA TP ONE ×2 (12:30→13:00)
[2021-10-29] MEDS ORDERED: METHYLERGONOVINE MALEATE 0.2 MG/ML VIAL IM ONE (12:31)
[2021-10-29] MEDS ORDERED: fentaNYL 100 MCG/2 ML INJ ONE (12:33)
[2021-10-29] MEDS ORDERED: miSOPROStol 200 MCG TAB PR NR (12:45)
[2021-10-29] MEDS ORDERED: miSOPROStol 100 MCG TAB PR ONE (13:00)
[2021-10-29] MEDS ORDERED: LIDOCAINE PF 100 MG/5 ML (CARDIAC SYRINGE) IV ONE (13:23)
[2021-10-29] MEDS ORDERED: KETOROLAC 30 MG/1 ML INJ ONE (13:23)
[2021-10-29] MEDS ORDERED: ONDANSETRON 4 MG/2 ML INJ ONE (13:23)
[2021-10-29] MEDS ORDERED: dexAMETHasone 20 MG/5 ML VIAL ONE (13:23)
--- NOTE | 2021-10-29 13:26 | Operative Report ---
Operative Report Operative Report: Date of procedure: October 29, 2021 Preoperative diagnosis: 1) Blighted Ovum 2) Fibroid Uterus Postoperative diagnosis: Same Procedure: Suction Dilation and Curettage Surgeon: Julia Acosta MD Anesthesia: General with LMA Findings: 1)Enlarged fibroid uterus which sounded to 13 cm 2) Minimal endometrial tissue EBL: 50 mL Urine output: 150 mL, clear, prior to procedure Specimens: Products of conception to pathology Drains: None Complications: None. Counts correct x 2 Disposition: Stable to PACU Indication for procedure: Pt is a 36 year old who presents for surgical management of blighted ovum. Procedure in detail: After the risks, benefits, alternatives and complications were explained to the patient she gave informed consent for the procedure. She was subsequently taken to the operating room with her IV noted to be running well. She was placed in the dorsal supine position and SCDs were noted to be in place and functioning. General anesthesia was then induced without difficulty. She was then placed in the dorsal lithotomy position and prepped and draped in a normal sterile fashion. A timeout was performed. The bladder was emptied yielding 150 mL of clear urine. A bi-valve speculum was placed into the vagina for visualization of the cervix. A single-tooth tenaculum was placed on the anterior lip of the cervix. The cervix was serially dilated to a #21 Quijano dilator. A number 7 rigid suction curette was used to evacuate the uterine cavity. A sharp curettage was done and noted to be gritty x 4 quadrants. All instruments were removed from the uterus atraumatically. Silver nitrate was placed on the tenaculum puncture sites. All instruments were then removed from the vagina atraumatically. Misoprostol 800 mcg was placed per rectum. At this time, the procedure was ended. The patient was placed into the dorsal supine position and extubated without difficulty. She was then taken to the PACU in stable condition. All counts were correct x 2.
--- NOTE | 2021-10-29 13:30 | Short Stay Summary ---
Short Stay Documentation Date of service: 10/29/21 - History H&P: dictated Social history: no significant social history - Allergies and Medications Current Medications: Allergies No Known Allergies Allergy (Unverified 10/04/18 06:41) Home Medications Medication Instructions Recorded Confirmed Last Taken Type Escitalopram Oxalate [Lexapro] DAILY PRN 10/28/21 Unknown History Insulin Glargine,Hum.rec.anlog 25 units SUB-Q AC 10/28/21 10/29/21 10/28/21 12:00 History [Toujeo Solostar] Lispro Insulin [HumaLOG] 25 units SQ DAILY 10/28/21 10/29/21 10/28/21 12:00 History Metformin HCl [Metformin HCl ER] DAILY 10/28/21 10/28/21 09:00 History NIFEdipine [Nifedipine ER] DAILY 10/28/21 10/29/21 08:00 History Active Medications Hydromorphone HCl (Hydromorphone 0.5 Mg/0.5 Ml Inj) 0.25 mg IV Q10MIN PRN PRN Reason: Pain, Moderate (4-6) Hydromorphone HCl (Hydromorphone 0.5 Mg/0.5 Ml Inj) 0.5 mg IV Q10MIN PRN PRN Reason: Pain , Severe (7-10) Lactated Ringer's (Lactated Ringers) 1,000 mls @ 75 mls/hr IV DIRECT JANETTE Last Admin: 10/29/21 12:03 Dose: 75 mls/hr Midazolam HCl (Midazolam 2 Mg/2 Ml Inj) 2 mg IV PREOP NR Stop: 10/29/21 23:59 Last Admin: 10/29/21 12:33 Dose: 2 mg Ondansetron HCl (Ondansetron 4 Mg/2 Ml Inj) 4 mg IV ONCE PRN PRN Reason: Nausea And Vomiting - Physical exam Breasts: deferred - Brief post op/procedure progress note Date of procedure: 10/29/21 Pre-op diagnosis: Blighted Ovum, Fibroid Uterus Post-op diagnosis: same Procedure: Suction dilation and curettage Anesthesia: GETA (with LMA ) Findings: 1)Enlarged fibroid uterus which sounded to 13 cm 2) Minimal endometrial tissue Surgeon: TANJA ACOSTA Estimated blood loss: 50-100ml (50 mL) Pathology: list (products of conception) Specimen disposition: to lab Condition: stable - Hospital course Hospital course: Patient underwent suction dilation and curettage which he tolerated well. She was observed in the PACU until she met discharge criteria. She will follow-up in [address] Acosta - Disposition Condition at discharge: Stable Disposition: 01 HOME / SELF CARE / HOMELESS - Discharge Diagnoses (1) Blighted ovum Status: Acute (2) Fibroid uterus Status: Acute Qualifiers: Uterine leiomyoma location: unspecified location Qualified Code(s): D25.9 - Leiomyoma of uterus, unspecified (3) Diabetes Status: Acute Qualifiers: Diabetes mellitus chcf insulin use: with chcf use (4) Hypertension Status: Acute Qualifiers: Hypertension type: unspecified Qualified Code(s): I10 - Essential (primary) hypertension (5) Obesity Status: Acute Qualifiers: Obesity type: unspecified obesity type Obesity classification: adult class 2 (BMI 35 - 39.9) Serious obesity comorbidity presence: unspecified whether serious comorbidity present Body mass index: BMI 38.0-38.9 Qualified Code(s): E66.9 - Obesity, unspecified; Z68.38 - Body mass index [BMI] 38.0-38.9, adult (6) Personal history of pulmonary embolism Status: Acute Short Stay Discharge Plan Activity: other (Nothing in vagina, no sex, no tub baths, no swimming for 4 wks ) Weight Bearing Status: Full Weight Bearing Diet: regular Additional Instructions: Please do not take ibuprofen while you are taking Xarelto. Please use previously prescribed Tyro and Tylenol for pain as needed. Continue to take your other home medications. Follow up with: REBECCA KINGSTON JR, MD [Primary Care Provider] - 7 Days TANJA ACOSTA MD [Staff Physician] - 7 Days
[2021-10-29 14:47] VITALS: BP 139/93
--- NOTE | 2021-10-29 15:43 | Post Anesthesia Evaluation ---
- Post Anesthesia Evaluation Patient Participated: Yes Airway Patent: Yes Stable Respiratory Function: Yes Nausea/Vomiting: No Temp > 96.8F: Yes Pain Manageable: Yes Adequeate Hydration: Yes Anesthesia Complications: No Block Receding Appropriately: Not Applicable Patient on Ventilator: No
--- NOTE | 2021-10-29 15:57 | Ultrasound Report ---
US pelvic limited INDICATION / CLINICAL INFORMATION: Fibroids, Missed TECHNIQUE: Intraoperative sonographic images were obtained during the procedure. FINDINGS: Intraoperative sonographic images for Dr. Acosta. See operative/procedure note by performing physician for full details. Ultrasound Images: 11. Scribed by: Kelli Collins RDMS, RVT, RMSKS Scribed: 10/29/2021 2:47 PM I have reviewed the images, agree with this report, and edited this report as needed. Signer Name: Jason Archibald MD Signed: 10/29/2021 3:53 PM Workstation Name: [id number]
== END 2021-10-29 14:30 | disposition home or self-care (01) ==
LOC: OR 10:19
PROVIDERS: ATTEND Obstetrics & Gynecology
DX: O02.0 Blighted ovum and nonhydatidiform mole (principal); D25.9 Leiomyoma of uterus, unspecified; Z3A.10 10 weeks gestation of pregnancy; R10.2 Pelvic and perineal pain; J45.909 Unspecified asthma, uncomplicated; E11.9 Type 2 diabetes mellitus without complications; I10 Essential (primary) hypertension; F41.9 Anxiety disorder, unspecified; Z86.718 Personal history of other venous thrombosis and embolism; Z83.3 Family history of diabetes mellitus; Z98.891 History of uterine scar from previous surgery; Z98.890 Other specified postprocedural states; Z82.49 Family history of ischemic heart disease and other diseases of the circulatory system
CPT/HCPCS: 36415; 59820; 76998; 82962; 84702; 85027; 86850; 86900; 86901; 88305; J0690; J1100; J1170; J1885; J2001; J2210; J2250; J2405; J2704; J3010; J7120; 76857; Q9967; J1815